=== PATIENT | male | born 1980 | race Two or more races ===

== ENCOUNTER → 2024-09-02 | Outpatient (CLI) | payer OTHER, SELFPAY ==
--- NOTE | 2024-09-02 | LES_PTH ---
PATIENT: DARBY MARINO [facility]: [facility]#:[id number] AGE/SX: 44/M ROOM: RE09/02/[address]: Dr. Jayme Leiva MD : 1980 BED: DIS: 09/02/2024 SPEC #: [id number] RECD: 09/02/24 11:52 STATUS: NILO REQ #: [id number] SWETHA: 09/02/24 00:[address]: Jayme Leiva DEPT: SURGICAL PATHOLOGY RECD BY: Carrillo Delacruz ENTERED: 09/02/24 11:53 SP TYPE: Lesion OTHR DR: No Primary Care Phys Tissues: A - Skin of eyelid, NOS Procedures: Surgery Specimen Level IV HEADER OPERATION: Not noted PRE-OP DIAGNOSIS: Left palpebral conjunctival lesion, suspected pyogenic granuloma TISSUE SUBMITTED: A- Left eye lesion MICROSCOPIC DIAGNOSIS A. Left eye, conjunctiva, lesion removal: * Extensively ulcerated tissue with marked acute and chronic granulomatous inflammation with granulation tissue (See note) Note: Staining for PAS, GMS and AFB is in progress and will be reported as an addendum MICROSCOPIC DESCRIPTION Slides are reviewed. GROSS DESCRIPTION A. Received in formalin labeled with the patient's name, date of , and left conjunctiva are 2 unoriented and irregular fragments of anaya-briceno soft tissue measuring 0.9 x 0.3 x 0.3 cm and 0.8 x 0.5 x 0.4 cm. Each display anaya-briceno, glistening, and rubbery outer surfaces with an opposing roughened resection margin (each inked green). Sectioning of each reveals briceno, rubbery, and uniform surfaces. Submitted entirely in A1. [facility] 09/04/2024 CPT:[id number] ADDENDUM ADDENDUM 09/04/2024 16:33 ADDENDUM 09/04/2024 16:33 ADDENDUM 09/04/2024 16:33 ADDENDUM 09/04/2024 16:33 ADDENDUM 09/04/2024 16:33 Staining for PAS, GMS and AFB are negative
== END | disposition home or self-care (01) ==
PROVIDERS: Referring Provider Ophthalmology; Visit Provider Ophthalmology
DX: H10.89 Other conjunctivitis (principal)
CPT/HCPCS: 88305